=== PATIENT | male | born 1995 | race Caucasian/White ===

== ENCOUNTER 2024-06-13 07:17 | Emergency (ER) | payer OTHER, SELFPAY ==
[2024-06-13] VITALS (10 sets, daily range): BP systolic 128–142; BP diastolic 66–86; PULSE 85–98; RESP 17–21; TEMP 37; O2SAT 97–100
--- NOTE | 2024-06-13 07:24 | ECG_ITS ---
Test Date: 2024-06-13 07:32:04 Measurements Intervals [place] Rate: 98 P: 46 NE: 159 QRS: -13 QRSD: 101 T: 30 QT: 365 QTc: 467 Interpretive Statements SINUS RHYTHM MINIMAL Q WAVES- HIGHLATERAL LEADS BASELINE ARTIFACT- I, II, III BORDERLINE ECG No previous ECG available for comparison Electronically Signed On 06-13-2024 07:52:05 ALMOND BLANCHER OPERATOR by Carlos Ocampo D.O.
--- NOTE | 2024-06-13 07:28 | ED.ANXIETY ---
HPI - Anxiety General Chief Complaint: Anxiety Stated Complaint: panic attack Time Seen by Provider: 06/13/24 07:26 Source: patient Mode of arrival: EMS History of Present Illness HPI narrative: 28 years old white male wake up at 6:30 a.m. this morning feeling freaking out, jittery, restless. Patient is telling me that he had quite a bit of alcohol last night with quite a bit of weed. Patient usually drinks without using weed at the same time. In the ED feeling jittery and anxious. Related Data Allergies Allergy/AdvReac Type Severity Reaction Status Date / Time No Known Allergies Allergy Verified 06/13/24 07:29 Review of Systems Review of Systems: All systems reviewed & are unremarkable except as noted in HPI and below PMFSH Social History Social History Substance use type: marijuana Exam Narrative: General appearance: Well-developed, well-nourished, anxious Skin: Normal color Head: Normocephalic, nontraumatic Eyes: Clear conjunctiva ENT: Oropharynx normal, ears normal, nose normal Neck: Supple, nontender Chest and respiratory: Airway patent, no respiratory distress, no accessory muscle use Heart: Regular rate/rhythm Abdomen: Soft, nontender, no organomegaly, quiet bowel sounds Vascular: Normal peripheral pulses, normal capillary refill. Musculoskeletal: Normal range of motion, nontender back Neurologic: Alert and oriented ?3, MECHANIC SOUND TECHNICIAN is normal as tested, no gross motor deficit Course Vital Signs Vital signs: Vital Signs Temperature 37.0 C 06/13/24 07:18 Pulse Rate 98 06/13/24 07:18 Respiratory Rate 18 06/13/24 07:18 Blood Pressure 140/73 06/13/24 07:18 Pulse Oximetry 100 06/13/24 07:18 Oxygen Delivery Room Air 06/13/24 07:18 Temperature 37.0 C 06/13/24 07:18 Pulse Rate 92 06/13/24 08:55 Respiratory Rate 18 06/13/24 08:55 Blood Pressure 142/86 H 06/13/24 08:55 Pulse Oximetry 100 06/13/24 08:55 Oxygen Delivery Room Air 06/13/24 07:18 Procedures Laceration Laceration 1: Size (cm): 1 Amount of anesthesia used (mL): 3 ====== Skin Level ====== Number of sutures: 2 ====== Subcutaneous Layer ====== ====== Muscle Layer ====== ====== Tendon Layer ====== MDM - Anxiety MDM Narrative Medical decision making narrative: Patient presents with anxiety like symptoms secondary to alcohol and weed last night. Vital signs are stable Physical examination showing restless anxious patient EKG on arrival showed normal sinus rhythm, Discharge with anxiety like symptoms Differential Diagnosis Differential diagnosis: Likely acute anxiety Lab Data 06/13/24 08:39 06/13/24 08:39 Labs: Lab Results 06/13/24 06/13/24 Range/Units 08:39 08:48 WBC 6.3 (4.5-10.0) K/mm3 RBC 5.52 (4.6-6.20) M/mm3 Hgb 16.0 (14.0-18.0) g/dL Hct 46.3 (42.0-52.0) % MCV 83.9 (80-100) fl MCH 29.0 (26-34) pg MCHC 34.6 (32-36) g/dl RDW 13.2 (11.5-14.5) % Plt Count 212 (150-375) k/mm3 MPV 9.1 (7.4-10.4) fl Immature Gran % (Auto) 3.8 H (0-0.5) % Neut % (Auto) 70.5 (45.5-73.1) % Lymph % (Auto) 15.2 L (18.3-44.2) % Teller % (Auto) 8.9 H (2.6-8.5) % Eos % (Auto) 1.0 (0-4.4) % Baso % (Auto) 0.6 (0.2-1.2) % Lymph # (Auto) 0.96 (0.9-3.2) K/mm3 Teller # (Auto) 0.6 (0.1-0.6) K/mm3 Eos # (Auto) 0.1 (0-0.3) K/mm3 Baso # (Auto) 0.0 (0.0-0.1) K/mm3 Abs Immat Gran (auto) 0.24 H (0.00-0.031) K/mm3 Absolute Neuts (auto) 4.4 (1.3-6.7) K/mm3 Absolute Nucleated RBC 0.000 (0.0-0.012) K/mm3 Nucleated RBC % 0.0 (0.0-0.2) % Sodium 138 (137-145) mmol/L Potassium 4.1 (3.4-5.0) mmol/L Chloride 104 (98-107) mmol/L Carbon Dioxide 25 (22-30) mmol/L Anion Gap 9 (4-12) mmol/L BUN 13 (9-20) mg/dL Creatinine 1.00 (0.7-1.3) mg/dL Estim Creat Clear Calc 120 ml/min Estimated GFR > 60 (59 - ) Glucose 99 (65-110) mg/dL Calcium 8.6 (8.4-10.2) mg/dL Total Bilirubin 1.0 (0.2-1.3) mg/dL AST 34 (17-59) U/L ALT 46 (6-50) U/L Alkaline Phosphatase 87 (38-126) U/L Total Creatine Kinase Pending Total Protein 7.0 (6.3-8.2) g/dL Albumin 4.0 (3.5-5.1) g/dL Urine Opiates Screen Pending Urine Methadone Screen Pending Ur Barbiturates Screen Pending Ur Phencyclidine Scrn Pending Ur Amphetamine Screen Pending U Benzodiazepines Scrn Pending Urine Cocaine Screen Pending U Cannabinoids Screen Pending Ethyl Alcohol < 10 (<10) mg/dL ECG Data EKG #1: Attestation: I personally reviewed and interpreted this ECG as follows: ECG completion date: 06/13/24 Interpretation: Normal sinus rhythm at 98 beats per minute, baseline artifact, borderline EKG, no previous EKG available for comparison Critical Care Time Critical Care Time Critical Care Time: No Discharge Plan Discharge Clinical Impression: Acute anxiety Patient Disposition: Home, Self-Care Condition: Stable Instructions: Anxiety (ED) Additional Instructions: Return if symptoms are worsening , call your family physician for appointment, take Tylenol as as needed for aches and pain, continue home medications. Patient Language: Armenian
[2024-06-13] MEDS: LORazepam (*CRX) 1 MG TABLET PO (07:39)
--- OUTSIDE RECORDS SUMMARY | 2024-06-13 08:31 | XMS_ITS | Clinical Summary ---
Author Organization [facility] Address [address] [place] [address] Phone Care Team Providers Care Photograph Editor Name Role Phone Deandre Duran DO Primary Care Provider [phone] Allergies No known active allergies Medications meloxicam (Mobic) 15 mg tablet Take 15 mg by mouth 1 (one) time each day. As needed Active tirzepatide, weight loss, (Zepbound) injection penIndications:C lass 3 severe obesity in adult, unspecified BMI, unspecified obesity type, unspecified whether serious comorbidity present (CMS/HCC) Inject 1 Pen (15 mg total) under the skin every 7 (seven) days. 6 mL 03/17/2024 5 Active Active Problems Problem Noted Date Diagnosed Date Hypertriglyceridemia 04/26/2023 Elevated liver enzymes 04/26/2023 Encounters Date Type Department Care Team Description 03/17/2024 Refill [facility] [address] [id number] Rachel Byrd, DATA WAREHOUSE ADMINISTRATOR-IV Class 3 severe obesity in adult, unspecified BMI, unspecified obesity type, unspecified whether serious comorbidity present (CMS/HCC) (Primary Dx) from Last 3 Months Social History Tobacco Use Types Packs/Day Years Used Date Smoking Tobacco: Never Smokeless Tobacco: Never Tobacco Cessation:Counseling Given: Not Answered Comments:Nicotine Patches Alcohol Use Standard Drinks/Week Comments Yes 0 (1 standard drink = 0.6 oz pur e alcohol) weekends only PHQ-2 Answer Date Recorded Patient Health Questionnaire-2 Score 0 12/25/2023 [facility] - Mental Health Answer Date Recorde d Little interest or pleasure in doing things Not at all 12/25/2023 Feeling down, depressed, or hopeless Not at all 12/25/2023 Feeling of Stress Not on file 12/25/2023 Sex and Gender Information Value Date Recorded Sex Assigned at Not on file Legal Sex Male 9:26 AM CDT Gender Identity Not on file Sexual Orientation Not on file Last Filed Vital Signs Vital Sign Reading Time Taken Comments Blood Pressure 117/72 12/25/2023 1:08 PM CDT Pulse 81 12/25/2023 1:08 PM CDT Temperature 36.1 C (96.9 F) 12/25/2023 1:08 PM CDT Respiratory Rate - - Oxygen Saturation 99% 12/25/2023 1:08 PM CDT Inhaled Oxygen Concentration - - Weight 113 kg (250 lb) 12/25/2023 1:08 PM CDT Height 180.3 cm (5' 11 ) 12/25/2023 1:08 PM CDT Body Mass Index 34.87 12/25/2023 1:08 PM CDT Plan of Treatment Upcoming Encounters Date Type Department Care Team (Late st Contact Info) Description 06/30/2024 3:30 PM CDT Office Visit [facility] [address] [place] [phone] Deandre Duran DO [address] [place] [address] [phone] Health Maintenance Due Date Last Done Comments MMR Vaccines (1 of 1 - Stand daniel series) 08/22/1995 DTaP,Tdap,and Td Vaccines (1 - Tdap) 2001 Varicella Vaccines (1 of 2 - 13+ 2-dose series) 08/22/2007 Hepatitis B Vaccines (1 of 3 - 19+ 3-dose series) 2013 COVID-19 Vaccine ( - 2023-2 5 season) 2023 Influenza Vaccine (#1) 2023 Zoster Vaccines (1 of 2) 2044 Pneumococcal Vaccine: 65+ Ye ars (1 of 1 - PCV) 08/22/2059 RSV Vaccine 60+ or (1 - 1-dose 75+ series) 2069 HIB Vaccines Aged Out No longer eligi ble based on patient's age to complete this topic HPV Vaccines Aged Out No longer eligi ble based on patient's age to complete this topic Hepatitis A Vaccines Aged Out No long er eligible based on patient's age to complete this topic IPV Vaccines Aged Out No longer eligi ble based on patient's age to complete this topic Meningococcal Vaccine Aged Out No estevan jason eligible based on patient's age to complete this topic Pneumococcal Vaccine: Pediat rics (0 to 5 Years) and At-Risk Patients (6 to 64 Years) Aged Out No longer eligible b ased on patient's age to complete this topic RSV Vaccine <20 Months Aged Out No lo nger eligible based on patient's age to complete this topic Rotavirus Vaccines Aged Out No longer eligible based on patient's age to complete this topic Insurance [employer] Care Teams Photograph Editor Relationship Specialty Start Date End Date Deandre Duran DO [address] [place] [phone] PCP - General Internal Medicine 03/26/23
--- OUTSIDE RECORDS SUMMARY | 2024-06-13 08:32 | XMS_ITS | Referral Summary ---
Author Organization [facility] Address [address] [place] [address] Phone Care Team Providers Care Die Filer Name Role Phone Deandre Duran DO Primary Care Provider [phone] Encounters Date Type Department Care Team Description 03/17/2024 Refill [facility] [address] [phone] Rachel Byrd, PICKER BOX OPERATOR-IV Class 3 severe obesity in adult, unspecified BMI, unspecified obesity type, unspecified whether serious comorbidity present (CMS/HCC) (Primary Dx) from Last 3 Months Allergies No known active allergies Medications meloxicam [...] Date Hypertriglyceridemia 04/26/2023 Elevated liver enzymes 04/26/2023 Social History Tobacco Use Types Packs/Day Years Used Date Smoking Tobacco: Never Smokeless Tobacco: Never Tobacco Cessation:Counseling Given: Not Answered Comments:Nicotine Patches Alcohol Use Standard Drinks/Week Comments Yes 0 (1 standard drink = 0.6 oz pur e alcohol) weekends only PHQ-2 Answer Date Recorded Patient Health Questionnaire-2 Score 0 12/25/2023 [facility] - Mental Health Answer Date Recorde d [...] [facility] [address] [place], [place] [phone] Deandre Duran, [address] [phone] Insurance [employer] Care Teams Die Filer Relationship Specialty Start Date End Date Deandre Duran DO [facility] [place] [phone] PCP - General Internal Medicine 03/26/23
--- OUTSIDE RECORDS SUMMARY | 2024-06-13 08:32 | XMS_ITS | Encounter Summary ---
Author Organization [facility] Address [address] [place] [phone] Phone Care Team Providers Care Auth Specialist Name Role Phone Deandre Duran DO Primary Care Provider [phone] Reason for Visit * Reason Onset Date Comments call back 04/04/2023 Encounter Details Date Type Department Care Team (Late st Contact Info) Description 04/04/2023 Telephone [facility] [address] [place] [phone] Deanrde Duran DO [address] [place] [phone] call back Social History Tobacco Use Types Packs/Day Years Used Date Smoking Tobacco: Never Smokeless Tobacco: Never Comments:Nicotine Patches Alcohol Use Standard Drinks/Week Comments Yes 0 (1 standard drink = 0.6 oz pur e alcohol) weekends only PHQ-2 Answer Date Recorded Patient Health Questionnaire-2 Score 0 03/26/2023 Sex and Gender Information Value Date Recorded Sex Assigned at Not on file Legal Sex Male 9:26 AM CDT Gender Identity Not on file Sexual Orientation Not on file documented as of this encounter Miscellaneous Notes * Telephone Encounter - DANIA Gonzales - 04/04/2023 1:10 PM [facility] Medication approved. Pharmacy notified. [facility] * Telephone Encounter - DANIA Gonzales - 04/04/2023 11:31 AM [facility] Submitted on covermymeds [facility] * Telephone Encounter - DANIA Gonzales - 04/04/2023 11:08 AM [facility] Waiting on PA to come through via pharmacy [facility] * Telephone Encounter - Cielo Joshi - 04/04/2023 10:22 AM CST Calling about getting the approval for his Saxenda. [facility] documented in this encounter Plan of Treatment Upcoming Encounters Date Type Department Care Team (Late st Contact Info) Description 06/30/2024 3:30 PM CDT Office Visit [facility] [address] [place] [phone] Deandre Duran DO [address] [place] [phone] documented as of this encounter Visit Diagnoses Not on filedocumented in this encounter Care Teams Auth Specialist Relationship Specialty Start Date End Date Deandre Duran DO [address] [place] [phone] PCP - General Internal Medicine 03/26/23 documented as of this encounter
[2024-06-13 08:47] LABS: Basophils Percent Auto 0.6 % (0.2-1.2); Eosinophils Absolute Auto 0.1 K/mm3 (0-0.3); Hematocrit 46.3 % (42.0-52.0); Immature Granulocyte Absolute 0.24 K/mm3 (0.00-0.031); Immature Granulocyte Percent A 3.8 % (0-0.5); Lymphocytes Absolute Auto 0.96 K/mm3 (0.9-3.2); Lymphocytes Percent Auto 15.2 % (18.3-44.2); Mean Corpuscular HGB Conc 34.6 g/dl (32-36); Mean Corpuscular Volume 83.9 fl (80-100); Mean Platelet Volume 9.1 fl (7.4-10.4); Monocytes Absolute Auto 0.6 K/mm3 (0.1-0.6); Monocytes Percent Auto 8.9 % (2.6-8.5); Neutrophils Absolute Auto 4.4 K/mm3 (1.3-6.7); Neutrophils Percent Auto 70.5 % (45.5-73.1); Platelet Count Result 212 k/mm3 (150-375); Red Blood Count 5.52 M/mm3 (4.6-6.20); Red Cell Distribution Width 13.2 % (11.5-14.5); White Blood Count 6.3 K/mm3 (4.5-10.0)
[2024-06-13 09:00] LABS: Ethanol < 10 mg/dL (<10)
[2024-06-13 09:16] LABS: Alanine Aminotransferase 46 U/L (6-50); Alkaline Phosphatase 87 U/L (38-126); Anion Gap 9 mmol/L (4-12); Aspartate Amino Transferase 34 U/L (17-59); Blood Urea Nitrogen 13 mg/dL (9-20); Calcium 8.6 mg/dL (8.4-10.2); Carbon Dioxide 25 mmol/L (22-30); Chloride 104 mmol/L (98-107); Estimated CRCL calculation 120 ml/min; Estimated Glomerular Filt Rate > 60; Glucose 99 mg/dL (65-110); Potassium 4.1 mmol/L (3.4-5.0); Sodium 138 mmol/L (137-145)
[2024-06-13 09:25] LABS: Creatine Kinase 202 U/L (55-170)
[2024-06-13 09:33] LABS: Amphetamine Screen Urine Negative (Negative); Barbiturate Screen Urine Negative (Negative); Benzodiazepines Screen Urine Negative (Negative); Cannabinoid Screen Urine Positive (Negative); Cocaine Screen Urine Negative (Negative); Methadone Screen Urine Negative (Negative); Opiate Screen Urine Negative (Negative); Phencyclidine Screen Urine Negative (Negative)
== END 2024-06-13 09:55 | disposition home or self-care (01) ==
PROVIDERS: Emergency Provider Emergency Medicine
DX: F41.9 Anxiety disorder, unspecified (principal); R94.31 Abnormal electrocardiogram [ECG] [EKG]
CPT/HCPCS: 36415; 80053; 80307; 82077; 82550; 85025; 93005; 99283; A9270